=== PATIENT | male | born 1960 | race Caucasian/White ===

== ENCOUNTER 2020-03-19 11:36 | Emergency (ER) | payer MEDICAID ==
[~2020-03-19] VITALS: Ht 180.3 cm; Wt 72.6 kg
[2020-03-19 11:41] VITALS: BP 139/71
--- NOTE | 2020-03-19 11:43 | NUR ---
Snellen chart as follows; OD- 20/20 OS- 20/30 OU-20/20
--- NOTE | 2020-03-19 11:44 | NUR ---
To ED bed 03
[2020-03-19] MEDS ORDERED: TETRACAINE HCL/PF 0.5% OPTH 4 ML BTL OP ONE (11:55)
--- NOTE | 2020-03-19 12:02 | NUR ---
59 YEAR OLD MALE COMPLAINS OF LEFT EYE DISCOMFORT X 1 HOUR. PATIENT VERBALIZED "TRIMMING FIREPLANTS" WITHOUT WEARINGS GARDEN GLOVES, TOUCHED HIS FACE, RUBBED HIS LEFT EYE, AND FELT BURNING SENSATION AFTER. RINSED OUT EYES WITH WATER AFTER ONSET OF BURNING SENSATION WITH NO RELIEF. EYE IS RED AND WATERY. PATIENT IS ABLE TO SEE THROUGH AFFECTED EYE. DENIES PAIN. VERBALIZES BURNING SENSATION IN OTHER AREAS OF FACE HE TOUCHED ALSO. AO4, BREATHING EVEN AND UNLABORED, SKIN WARM AND DRY. BED IN LOWEST POSITION, LOCKED, X1 SIDERAIL UP. PMH - DENIED NKA
[2020-03-19 12:48] VITALS: BP 139/71
--- NOTE | 2020-03-19 12:48 | NUR ---
Note undone in EDM - 03/19/20 at 1250 by [facility] Patient discharged with v/s stable. Written and verbal after care instructions ABOUT CHEMICAL CONJUNCTIVITIS given and explained. Patient alert, oriented and verbalized understanding of instructions. Ambulatory with steady gait. All questions addressed prior to discharge. ID band removed. Patient advised to follow up with PMD. Rx of MOTRIN AND NORCO given. Patient educated on indication of medication including possible reaction and side effects. Opportunity to ask questions provided and answered.
--- NOTE | 2020-03-19 12:48 | NUR ---
Patient discharged with v/s stable. Written and verbal after care instructions ABOUT CHEMICAL CONJUNCTIVITIS given and explained. Patient alert, oriented and verbalized understanding of instructions. Ambulatory with steady gait. All questions addressed prior to discharge. ID band removed. Patient advised to follow up with PMD. Rx of MOTRIN AND NORCO given. Patient educated on indication of medication including possible reaction and side effects. PATIENT UNDERSTANDS AVOIDING DRIVING WHILE ON NORCO. Opportunity to ask questions provided and answered.
== END 2020-03-19 12:48 | disposition home or self-care (01) ==
LOC: MED 11:36
DX: H10.212 Acute toxic conjunctivitis, left eye (principal); F17.210 Nicotine dependence, cigarettes, uncomplicated
CPT/HCPCS: 99283

== ENCOUNTER 2021-02-12 07:39 | Emergency (ER) | payer MEDICAID ==
[~2021-02-12] VITALS: Ht 180.3 cm; Wt 69.4 kg
[2021-02-12 07:44] VITALS: BP 146/97
--- NOTE | 2021-02-12 07:47 | NUR ---
PT SENT TO LOBBY TO AWAIT AVAILABLE BED
[2021-02-12] MEDS ORDERED: HYDROcodone/APAP 5/325 MG 1 TAB TAB PO ONE (08:25)
[2021-02-12] MEDS ORDERED: ACET-10509 PO (08:56)
[2021-02-12 10:00] VITALS: BP 146/97
--- NOTE | 2021-02-12 10:00 | NUR ---
PT LEFT WITHOUT DISCHARGE INSTRUCTIONS
== END 2021-02-12 10:00 | disposition home or self-care (01) ==
LOC: MED 07:39
DX: M25.511 Pain in right shoulder (principal)
CPT/HCPCS: 93005; 99283